=== PATIENT | female | born 1975 | race Two or more races ===

== ENCOUNTER 2023-03-28 15:52 | Inpatient (IN) | payer OTHER ==
[~2023-03-28] VITALS: Ht 165.1 cm; Wt 105.0 kg
[2023-03-28 17:01] LABS: Urine Bacteria FEW /hpf (None Seen); Urine Blood 2+ /uL (Negative); Urine Clarity Clear (Clear); Urine Color Colorless (Yellow); Urine Mucus FEW (None Seen); Urine Protein, UAD 1+ (Negative); Urine Urobilinogen Normal (Negative); Urine WBC 10 /hpf (0 - 5)
[2023-03-28 17:24] LABS: Basophils # (auto) 0 10 ^3/uL (0-0.2); Basophils % (auto) 0.7 % (0.0-2.0); Eosinophils # (auto) 0.1 10 ^3/uL (0-0.8); Eosinophils % (auto) 2.1 % (0.0-7.0); Hematocrit 38.1 % (36.0-46.0); Hemoglobin 12.6 g/dL (12.2-16.2); Lymphocytes # (auto) 1.7 10 ^3/uL (0.4-5.4); Lymphocytes % (auto) 30.1 % (10.0-50.0); Mean Corpuscular Hemoglobin 27.2 pg (28.0-32.0); Mean Corpuscular Hgb Conc. 32.9 g/dL (32.0-36.0); Mean Corpuscular Volume 82.6 fL (80.0-100.0); Monocytes # (auto) 0.4 10 ^3/uL (0-1.3); Monocytes % (auto) 6.7 % (0.0-12.0); Neutrophils # (auto) 3.5 10 ^3/uL (1.6-8.6); Neutrophils % (auto) 60.4 % (37.0-80.0); Nucleated Red Blood Cells % 0.1 %; Red Blood Cells 4.61 10^6/uL (4.0-5.20); White Blood Cell 5.7 10^3/uL (4.4-10.8)
[2023-03-28 17:33] LABS: Alanine Aminotransferase 19 U/L (7-40); Albumin 4.3 g/dL (3.2-4.8); Alkaline Phosphatase 62 U/L (46-116); Anion Gap 6 (5-15); Aspartate Aminotransferase 15 U/L (13-40); Blood Urea Nitrogen 9 mg/dL (9-23); Calcium 9.2 mg/dL (8.7-10.4); Carbon Dioxide 27 mmol/L (20-30); Chloride 106 mmol/L (98-107); Glucose 120 mg/dL (74-106); Potassium 3.5 mmol/L (3.5-5.1); Sodium 139 mmol/L (136-145)
[2023-03-28 17:34] LABS: Bilirubin, Total 0.6 mg/dL (0.2-1.0); Red Cell Distribution Width 27.1 % (11.8-14.3); Total Protein 7.9 g/dL (5.7-8.2)
[2023-03-28 17:59] LABS: Anisocytosis Moderate; Platelet Estimate Adequate
[2023-03-28 18:00] LABS: Stomatocytes Few
[2023-03-29] MEDS ORDERED: PIPERACILLIN-TAZOB 3.375GM 100 ML IV ONE (03:00)
[2023-03-29] MEDS ORDERED: ONDANSETRON HCL 4 MG/2 ML VIAL IV PRN ×2 (03:15→17:30)
[2023-03-29] MEDS ORDERED: MORPHINE SULFATE INJ 2 MG/ml SYRG IV PRN (03:15)
[2023-03-29 08:30] VITALS: PULSE 64; RESP 18; O2SAT 95
[2023-03-29 10:03] LABS: INR 1.03 (0.9-1.15); Partial Thromboplastin Time 30.3 SEC (24.5-34.5); Prothrombin Time 10.8 sec (9.3-11.8)
[2023-03-29] MEDS ORDERED: IOHEXOL 300 MG/ML 100ML BOTTLE IJ ONE ×2 (11:34→15:01)
[2023-03-29 13:00] VITALS: BP 121/80; PULSE 70; RESP 18; TEMP 97.7; O2SAT 97
[2023-03-29 14:24] VITALS: PULSE 62; RESP 18; O2SAT 100
[2023-03-29] MEDS ORDERED: ASCO500C49 PO (15:07)
[2023-03-29] MEDS ORDERED: FERR1TAB36 PO (15:07)
[2023-03-29] MEDS ORDERED: PROPOFOL 10 MG/ML 20 ML IV ONE (16:25)
[2023-03-29] MEDS ORDERED: fentaNYL CITRATE 100 MCG/2 ML VL ONE (16:26)
[2023-03-29] MEDS ORDERED: ONDANSETRON HCL 4 MG/2 ML VIAL ONE (16:56)
[2023-03-29] MEDS ORDERED: DexAMETHasone SOD PHOS 10MG/1ML VIAL INJ ONE (16:56)
[2023-03-29] MEDS ORDERED: ePHEDrine SULFATE 50 MG/ML AMP ONE (16:58)
[2023-03-29] MEDS ORDERED: MEPERIDINE HCL (25 MG/ML) 1ML VIAL IV PRN (17:30)
[2023-03-29] MEDS ORDERED: HYDROmorphone HCL 2 MG/ML VL/or syr IV PRN (17:30)
[2023-03-29] MEDS: PIPERACILLIN-TAZOB 3.375GM 100 ML IV SCH (18:00)
[2023-03-29 22:00] VITALS: BP 119/70; PULSE 59; RESP 18; TEMP 97.6; O2SAT 100
[2023-03-30 05:00] VITALS: BP 115/57; PULSE 91; RESP 18; TEMP 98.3; O2SAT 92
[2023-03-30] MEDS: PIPERACILLIN-TAZOB 3.375GM 100 ML IV SCH (05:20)
[2023-03-30 07:01] LABS: Basophils # (auto) 0 10 ^3/uL (0-0.2); Eosinophils # (auto) 0 10 ^3/uL (0-0.8); Hematocrit 37.2 % (36.0-46.0); Hemoglobin 12.3 g/dL (12.2-16.2); Lymphocytes # (auto) 0.9 10 ^3/uL (0.4-5.4); Lymphocytes % (auto) 11.1 % (10.0-50.0); Mean Corpuscular Hemoglobin 27.5 pg (28.0-32.0); Mean Corpuscular Hgb Conc. 33.2 g/dL (32.0-36.0); Mean Corpuscular Volume 82.9 fL (80.0-100.0); Monocytes # (auto) 0.2 10 ^3/uL (0-1.3); Neutrophils # (auto) 6.8 10 ^3/uL (1.6-8.6); Neutrophils % (auto) 86.9 % (37.0-80.0); Nucleated Red Blood Cells % 0.1 %; Red Blood Cells 4.49 10^6/uL (4.0-5.20); White Blood Cell 7.8 10^3/uL (4.4-10.8)
[2023-03-30 07:14] LABS: Alanine Aminotransferase 25 U/L (7-40); Albumin 4.1 g/dL (3.2-4.8); Alkaline Phosphatase 57 U/L (46-116); Anion Gap 9 (5-15); Aspartate Aminotransferase 18 U/L (13-40); BUN/Creatinine Ratio 11.2 (10.0-20.0); Blood Urea Nitrogen 12 mg/dL (9-23); Calcium 9.4 mg/dL (8.5-10.1); Carbon Dioxide 23 mmol/L (20-30); Chloride 105 mmol/L (98-107); Glucose 174 mg/dL (74-106); Potassium 3.9 mmol/L (3.5-5.1); Sodium 137 mmol/L (136-145)
[2023-03-30 07:15] LABS: Bilirubin, Total 0.5 mg/dL (0.2-1.0); Total Protein 7.6 g/dL (5.7-8.2)
[2023-03-30 07:20] LABS: Red Cell Distribution Width 25.8 % (11.8-14.3)
[2023-03-30 09:00] VITALS: BP 117/61; PULSE 90; RESP 18; TEMP 98.2; O2SAT 93
[2023-03-30 09:27] LABS: Platelet Estimate Adequate
[2023-03-30 09:28] LABS: Anisocytosis Moderate; Ovalocytes FEW; Target Cell FEW
[2023-03-30] MEDS ORDERED: CIPR-173 PO (09:43)
[2023-03-30 09:56] VITALS: BP 117/61; PULSE 90; RESP 18; TEMP 98.2; O2SAT 93
[2023-03-30 11:30] VITALS: BP 117/61; PULSE 90; RESP 18; TEMP 36.8; O2SAT 95
== END 2023-03-30 12:30 | disposition home or self-care (01) | DRG 700 ==
LOC: ER 15:52 → OVERFLOW 03-29 03:16 → EAST 03-29 10:07
PROVIDERS: ADMIT Nurse Practitioner; ATTEND Family Medicine
PROC: 0TF3XZZ Fragmentation in Right Kidney Pelvis, External Approach (ICD-10-PCS; principal; 2023-03-29 16:30)
PROC: 0TP5X0Z Removal of Drainage Device from Kidney, External Approach (ICD-10-PCS; 2023-03-29 16:30)
DX: T83.512A Infection and inflammatory reaction due to nephrostomy catheter, initial encounter (principal); N20.0 Calculus of kidney; Z87.442 Personal history of urinary calculi
CPT/HCPCS: 36415; 74176; 74425; 80053; 81001; 84702; 85025; 85610; 85730; 87086; G0378; J1100; J2405; J2543; J2704